=== PATIENT | female | born 1955 | race Caucasian/White ===

== ENCOUNTER 2017-08-02 18:38 | Emergency (ER) | payer MEDICARE, OTHER ==
[2017-08-02 18:57] VITALS: BP 145/84
== END 2017-08-02 20:05 | disposition left against medical advice (07) ==
LOC: ER 18:38
DX: Z53.21 Procedure and treatment not carried out due to patient leaving prior to being seen by health care provider (principal)

== ENCOUNTER 2017-08-03 10:29 | Emergency (ER) | payer MEDICARE, OTHER ==
[2017-08-03] MEDS ORDERED: LIDOCAINE 4% INJ/PF (40 MG/ML) 5 ML AMPUL TOP ONE (11:37)
[2017-08-03] MEDS ORDERED: SILVER NITRATE APPLICATOR 1 APPLIC STICK..EA. 10/PACKAGE TOP ONE (11:37)
[2017-08-03] MEDS ORDERED: OXYMETAZOLINE HCL 0.05% NASAL SPRAY 15 ML BOTTLE NASL ONE (11:38)
--- NOTE | 2017-08-03 11:42 | ER Document Report ---
ED General - General Chief Complaint: Nose Bleed Stated Complaint: NOSE BLEED Time Seen by Provider: 08/03/17 11:36 Notes: Patient is a 61-year-old lady taking Xarelto presented with left and right sided epistaxis. It began 3 days ago as left-sided trickle and then resolved on its own. It recurred last night and she felt like she was "bleeding out" so she came here by ambulance. The paramedics packed her nose and she states that it resolved while she was in the waiting room so she left without being seen. Began again today so she called 911 again. TRAVEL OUTSIDE OF THE [place] IN LAST 30 DAYS: No - Related Data Allergies/Adverse Reactions: Sulfa (Sulfonamide Antibiotics) Allergy (Intermediate, Verified 08/03/17 10:30) swollen face,hives Past Medical History - Social History Smoking Status: Unknown if Ever Smoked Family History: Reviewed & Not Pertinent - Past Medical History Cardiac Medical History: Reports: Hx DVT, Hx Hypertension - medicated, Hx Pulmonary Embolism, Hx Heart Murmur - diagnsosed at 7 years old Denies: Hx Heart Attack Pulmonary Medical History: Denies: Hx Asthma, Hx Tuberculosis Neurological Medical History: Denies: Hx Cerebrovascular Accident, Hx Seizures GI Medical History: Denies: Hx Hepatitis, Hx Hiatal Hernia, Hx Ulcer Musculoskeltal Medical History: Reports Hx Musculoskeletal Deformity, Reports Hx Musculoskeletal Trauma Infectious Medical History: Denies: Hx Hepatitis Past Surgical History: Reports: Hx Appendectomy, Hx Section, Hx Cholecystectomy. Denies: Hx Hysterectomy, Hx Mastectomy, Hx Open Heart Surgery , Hx Pacemaker - Immunizations Immunizations up to date: Yes Hx Diphtheria, Pertussis, Tetanus Vaccination: No Hx Pneumococcal Vaccination: 11/13/11 Review of Systems - Review of Systems Notes: REVIEW OF SYSTEMS GEN: Denies fever, chills, weight loss ENT: Denies sore throat, nasal discharge, ear pain. Positive nosebleed. EYES: Denies blurry vision, eye pain, discharge CV: Denies chest pain, palpitations, edema RESP: Denies cough, shortness of breath, wheezing GI: Denies abdominal pain, nausea, vomiting, diarrhea MSK: Denies joint pain/swelling, edema, SKIN: Denies rash, skin lesions LYMPH: Denies swollen glands/lymph nodes NEURO: Denies headache, focal weakness or numbness, dizziness PSYCH: Denies depression, suicidal or homicidal ideation PHYSICAL EXAMINATION General: No acute distress, well-nourished Head: Atraumatic, normocephalic ENT: Mouth normal, oropharynx moist, no exudates or tonsillar enlargement Eyes: Conjunctiva normal, pupils equal, lids normal Neck: No JVD, supple, no guarding CVS: Normal rate, regular rhythm, no murmurs Resp: No resp distress, equal and normal breath sounds bilaterally GI: Nondistended, soft, no tenderness to palpation, no rebound or guarding Ext: No deformities, no edema, normal range of motion in upper and lower ext Back: No CVA or midline TTP Skin: No rash, warm Lymphatic: No lymphadeopathy noted Neuro: Awake, alert. Face symmetric. GCS 15. Physical Exam - Vital signs Vitals: Temp Pulse Resp BP Pulse Ox 99.2 F 75 16 125/81 99 08/03/17 10:33 08/03/17 10:33 08/03/17 10:33 08/03/17 10:33 08/03/17 10:33 Course - Re-evaluation Re-evalutation: 08/03/17 11:43 61-year-old lady with epistaxis, mild, seemingly anterior, on Eliquis. We will move to a trauma room in order to get a full examination as the patient is currently in a hallway. 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 She did mention that she might be low on platelets and recent labs I will check a CBC on her. 08/03/17 12:18 Platelets are normal. Epistaxis controlled. We did not have an anterior Rhino Rocket so I placed an anteriorposterior. She tolerated this well. Bleeding stopped. She will be discharged with Keflex prophylaxis. I attempted to call Dr. Horn from your nose and throat and did not get through but patient was given his information. I have discussed with the patient there likely diagnosis , aftercare plan, follow-up plans and my usual and customary return precautions. They verbalized understanding of this. - Vital Signs Vital signs: Temp Pulse Resp BP Pulse Ox 99.2 F 75 16 125/81 99 08/03/17 10:33 08/03/17 10:33 08/03/17 10:33 08/03/17 10:33 08/03/17 10:33 - Laboratory Result Diagrams: 08/03/17 10:00 Laboratory results interpreted by me: 08/03/17 10:00 MCV 104 H MCH 35.1 H Seg Neutrophils % 34.4 L Lymphocytes % 48.8 H Monocytes % 13.3 H Absolute Neutrophils 1.5 L Procedures - Nosebleed Procedure Left Time completed: 12:15 Location: Anterior Supplies used: Rhinorocket Notes: Soaked in tranexamic acid. Pretreated with Afrin/4% lidocaine. Tolerated well. Discharge - Discharge Clinical Impression: Mild epistaxis Condition: Good Disposition: HOME, SELF-CARE Instructions: Nosebleed Instructions ([facility]) Additional Instructions: Folow up with Dr. Payton SUNDAY Prescriptions: Cephalexin Monohydrate [Keflex 500 mg Capsule] 500 mg PO Q6H 5 Days capsule Referrals: JOS KAPOOR MD [Primary Care Provider] - Follow up as needed CASSANDRA PAYTON DO [ASSOCIATE] - Follow up in 3-5 days
[2017-08-03 11:45] LABS: ABSOLUTE EOSINOPHILS # (AUTO) 0.1 10^3/uL (0.0-0.6); ABSOLUTE LYMPHOCYTES (AUTO) 2.1 10^3/uL (0.5-4.7); ABSOLUTE MONOCYTES (AUTO) 0.6 10^3/uL (0.1-1.4); ABSOLUTE NEUT (AUTO) 1.5 10^3/uL (1.7-8.2); BASOPHILS % (AUTO) 0.8 % (0-2); EOSINOPHILS % (AUTO) 2.7 % (0-6); HEMATOCRIT 42.3 % (36.0-47.0); HEMOGLOBIN 14.4 g/dL (12.0-15.5); LYMPHOCYTES % (AUTO) 48.8 % (13-45); MEAN CORPUSCULAR HEMOGLOBIN 35.1 pg (27.0-33.4); MEAN CORPUSCULAR VOLUME 104 fl (80-97); MONOCYTES % (AUTO) 13.3 % (3-13); PLATELET COUNT 153 10^3/uL (150-450); RED BLOOD COUNT 4.09 10^6/uL (3.72-5.28); RED CELL DISTRIBUTION WIDTH 13.1 % (11.5-14.0); SEGMENTED NEUTROPHILS % (AUTO) 34.4 % (42-78); TOTAL CELLS COUNTED % (AUTO) 100 %; WHITE BLOOD COUNT 4.3 10^3/uL (4.0-10.5)
[2017-08-03] MEDS ORDERED: TRANEXAMIC ACID INJ/PF 1,000 MG/10 ML SDV IV ONE (12:00)
[2017-08-03 12:27] VITALS: BP 136/86
== END 2017-08-03 12:27 | disposition home or self-care (01) ==
LOC: ER 10:29
PROC: 2Y41X5Z Packing of Nasal Region using Packing Material (ICD-10-PCS; principal; 2017-08-03)
DX: R04.0 Epistaxis (principal); Z79.01 Long term (current) use of anticoagulants
CPT/HCPCS: 99283; 96374; 36415; 85025; 30905; 30901; J3490 ×3

== ENCOUNTER → 2017-11-16 | Outpatient (CLI) | payer MEDICARE, OTHER ==
--- NOTE | 2017-11-16 11:02 | RADIOLOGY REPORT (SQ) ---
EXAM DESCRIPTION: U/S ABDOMEN COMPLETE W/DOPPLER COMPLETED DATE/TIME: 11/16/2017 9:27 am REASON FOR STUDY: ABNORMAL RESULTS OF LIVER FUNCTION STUDIES R94.5 ABNORMAL RESULTS OF LIVER FUNCTI ON STUDIES COMPARISON: None. TECHNIQUE: Dynamic and static grayscale images acquired of the abdomen and recorded on PACS. Additio nal selected color Doppler and spectral images recorded. LIMITATIONS: None. FINDINGS: PANCREAS: Head and body are normal. The tail was obscured by gas. LIVER: 14 cm. Normal echotexture. No masses. LIVER VASCULATURE: Normal directional flow of the main portal vein and hepatic veins. GALLBLADDER: Surgically absent. ULTRASOUND-DETECTED EMERSON'S SIGN: Not applicable. INTRAHEPATIC DUCTS AND COMMON DUCT: CBD and intrahepatic ducts normal caliber. No filling defects. INFERIOR VENA CAVA: Not well seen. AORTA: No aneurysm. RIGHT KIDNEY: Normal size, 11.1 cm. Normal echogenicity. No solid or suspicious masses. No hyd ronephrosis. No calcifications. LEFT KIDNEY: Normal size, 10.5 cm. Normal echogenicity. No solid or suspicious masses. No hydr onephrosis. No calcifications. SPLEEN: Normal size, 9.9 cm. No solid masses. PERITONEAL AND PLEURAL SPACES: No ascites or effusions. OTHER: No other significant finding. IMPRESSION: NORMAL ABDOMINAL ULTRASOUND. TECHNICAL DOCUMENTATION: JOB ID: [id number] [id number]- All Rights Reserved Reading location - IP/workstation name: [email or web address]
== END ==
LOC: RAD 08:54
PROVIDERS: ATTEND Physician Assistant Medical
DX: D69.6 Thrombocytopenia, unspecified (principal); R94.5 Abnormal results of liver function studies
CPT/HCPCS: 76700; 93976

== ENCOUNTER → 2018-10-31 | Outpatient (CLI) | payer MEDICARE, OTHER ==
--- NOTE | 2018-10-31 16:44 | RADIOLOGY REPORT (SQ) ---
EXAM DESCRIPTION: U/S THYROID/SFT TISS HD NECK COMPLETED DATE/TIME: 10/31/2018 4:16 pm REASON FOR STUDY: R22.1 LOCALIZED SWELLING, MASS AND LUMP, NECK R22.1 LOCALIZED SWELLING, MASS AND LUMP, NECK COMPARISON: CT chest 03/12/2015, 11/11/2011 TECHNIQUE: Dynamic and static lua-scale images acquired of the neck soft tissues. Selected addition al color/power Doppler images recorded. All images stored to PACS. LIMITATIONS: None. FINDINGS: Patient indicates a palpable nodule in the anterior right lower neck. Ultrasound of the a efra indicated by the patient demonstrates the inferior aspect of the sternocleidomastoid muscle. Foc al increased echogenicity along the belly of the sternocleidomastoid muscle is present without acoust ic shadowing. This could represent fibrosis in the muscle. Limited view of the thyroid is unremarkable. No new thyromegaly or discrete cystic or solid lesions are identified. IMPRESSION: Palpable abnormality right neck correlates with an area of thickening or fibrosis along the right sternocleidomastoid muscle. No worrisome mass or adenopathy. TECHNICAL DOCUMENTATION: JOB ID: [id number] [employer]- All Rights Reserved Reading location - IP/workstation name: [email or web address]
== END ==
LOC: RAD 15:22
PROVIDERS: ATTEND Family Medicine
DX: R22.1 Localized swelling, mass and lump, neck (principal)
CPT/HCPCS: 76536

== ENCOUNTER 2019-01-25 02:51 | Emergency (ER) | payer MEDICARE ==
[2019-01-25 03:05] VITALS: BP 136/84
== END 2019-01-25 06:10 | disposition left against medical advice (07) ==
LOC: ER 02:51
DX: Z53.21 Procedure and treatment not carried out due to patient leaving prior to being seen by health care provider (principal); R22.0 Localized swelling, mass and lump, head